=== PATIENT | male | born 2000 | race Hispanic/Latino ===

== ENCOUNTER 2023-03-06 10:39 | Emergency (ER) | payer SELFPAY ==
[~2023-03-06] VITALS: Ht 177.8 cm; Wt 75.0 kg
[2023-03-06 10:55] VITALS: BP 142/81
[2023-03-06 11:00] VITALS: BP 133/90
[2023-03-06] MEDS ORDERED: SELENIUM SUL EX (11:04)
[2023-03-06] MEDS ORDERED: DOXY-CAPS100 MG PO (11:04)
[2023-03-06 11:15] VITALS: BP 133/90
== END 2023-03-06 11:18 | disposition home or self-care (01) | DRG 607 ==
LOC: ED 10:39
DX: L21.0 Seborrhea capitis (principal); L73.9 Follicular disorder, unspecified